=== PATIENT | female | born 1990 | race Caucasian/White ===

== ENCOUNTER 2018-07-02 14:26 | Emergency (ER) | payer BC ==
[2018-07-02 15:22] LABS: ABS Basophils 0.1 10^3/ul (0-0.2); ABS Eosinophils 0.4 10^3/ul (0-0.6); ABS Lymphocytes 2.4 10^3/ul (1.0-4.8); ABS Monocytes 0.8 10^3/ul (0-0.8); ABS Neutrophils 7.2 10^3/ul (1.5-7.7); ABS Nucleated RBC 0 10^3/ul; Eosinophil % 3.5 %; Hematocrit 40 % (35-47); Hemoglobin 13.1 g/dl (12.0-16.0); Lymphocyte % 22.3 %; Mean Corpuscular HGB Conc 33 g/dl (31-36); Mean Corpuscular Hemoglobin 29 pg (27-31); Mean Corpuscular Volume 89 fL (80-97); Mean Platelet Volume 8.2 fL (7.4-10.4); Nucleated Red Blood Cells % 0; Platelet Count 382 10^3/ul (150-450); Red Blood Count 4.46 10^6/ul (4.00-5.40); Red Cell Distribution Width 14 % (10.5-15); White Blood Count 10.8 10^3/ul (3.5-10.8)
[2018-07-02 15:41] LABS: HCG Pregnancy 10.61 mIU/mL
[2018-07-02 16:06] LABS: ALT 15 U/L (7-52); AST 16 U/L (13-39); Albumin 4.6 g/dL (3.2-5.2); Albumin/Globulin Ratio 1.6 (1-3); Alkaline Phosphatase 71 U/L (34-104); Anion Gap 6 mmol/L (2-11); Blood Urea Nitrogen 7 mg/dL (6-24); C Reactive Protein < 1.00 mg/L (<8.01); CO2 Carbon Dioxide 22 mmol/L (22-32); Calcium 9.5 mg/dL (8.6-10.3); Chloride 109 mmol/L (101-111); EGFR African American 120.6 (>60); EGFR Non-African American 99.6 (>60); Globulin 2.8 g/dL (2-4); Glucose 110 mg/dL (70-100); Potassium 4.3 mmol/L (3.5-5.0); Sodium 137 mmol/L (135-145); Total Protein 7.4 g/dL (6.4-8.9)
--- NOTE | 2018-07-02 16:48 | ED ---
Abdominal Pain/Female - HPI Summary HPI Summary: Patient complains of progressive right lower quadrant pain 3 weeks, now recently radiating to right lower back. Pain described as stabbing, intermittent but mostly present, worse with nothing, improved with nothing. Denies prior history of same pain. Denies fever, cough, sore throat, CP, SOB, N /V/D, change in urine, change in BM, vaginal symptoms. Medical history is none. Abdominal surgical history is none. - History of Current Complaint Chief Complaint: EDAbdPain Stated Complaint: RIGHT SIDE ABD PAIN Time Seen by Provider: 07/02/18 16:04 Hx Obtained From: Patient Onset/Duration: Gradual Onset, Lasting Weeks Timing: Intermittent Episode Lasting Severity Initially: Severe Severity Currently: Severe Pain Intensity: 9 Pain Scale Used: 0-10 Numeric Location: Discrete At: RLQ Radiates: Yes Radiates to: Flank Character: Sharp Aggravating Factor(s): Nothing Alleviating Factor(s): Nothing Associated Signs and Symptoms: Positive: Back Pain Allergies/Adverse Reactions: Allergies Allergy/AdvReac Type Severity Reaction Status Date / Time clindamycin Allergy Hives Verified 07/02/18 14:34 codeine Allergy Vomiting Verified 07/02/18 14:34 diphenhydramine Allergy Swelling Verified 07/02/18 14:34 [From Benadryl] Of Face,Lips,& Throat Penicillins Allergy Hives Verified 07/02/18 14:34 Sulfa (Sulfonamide Allergy Hives Verified 07/02/18 14:34 Antibiotics) Home Medications: Home Medications Metoprolol Tartrate TAB* [Lopressor TAB*] 50 mg PO DAILY 07/02/18 [History Confirmed 07/02/18] PMH/Surg Hx/FS Hx/Imm Hx Endocrine/Hematology History: Denies: Hx Anticoagulant Therapy Cardiovascular History: Denies: Hx Cardiac Arrest History: Denies: Hx Dialysis Sensory History: Denies: Hx Eye Prosthesis EENT History: Denies: Hx Deafness Neurological History: Denies: Hx Dementia Infectious Disease History: No Infectious Disease History: Denies: Traveled Outside the [place] in Last 30 Days - Social History Lives: With Family Alcohol Use: None Substance Use Type: Reports: None Smoking Status (MU): Light Every Day Tobacco Smoker Review of Systems Constitutional: Negative Eyes: Negative ENT: Negative Cardiovascular: Negative Respiratory: Negative Positive: Abdominal Pain Genitourinary: Negative Musculoskeletal: Negative Skin: Negative Neurological: Negative Psychological: Normal All Other Systems Reviewed And Are Negative: Yes Physical Exam - Summary Physical Exam Summary: Mild tenderness suprapubically and right lower quadrant. Abdominal exam otherwise unremarkable. Triage Information Reviewed: Yes Vital Signs On Initial Exam: Initial Vitals Temp Pulse Resp BP Pulse Ox 97.4 F 111 16 157/96 97 07/02/18 14:30 07/02/18 14:30 07/02/18 14:30 07/02/18 14:30 07/02/18 14:30 Vital Signs Reviewed: Yes Appearance: Positive: Well-Appearing Skin: Positive: Warm Head/Face: Positive: Normal Head/Face Inspection Eyes: Positive: Normal Neck: Positive: Supple Respiratory/Lung Sounds: Positive: Clear to Auscultation Cardiovascular: Positive: Normal Abdomen Description: Positive: Other: Musculoskeletal: Positive: Normal Neurological: Positive: Normal Psychiatric: Positive: Normal AVPU Assessment: Alert - Guillermo Coma Scale Best Eye Response: 4 - Spontaneous Best Motor Response: 6 - Obeys Commands Best Verbal Response: 5 - Oriented - With Coma Scale Total: 15 Diagnostics - Vital Signs Vital Signs Temp Pulse Resp BP Pulse Ox 07/02/18 16:38 100.2 F 07/02/18 14:30 97.4 F 111 16 157/96 97 - Laboratory Lab Results: Lab Results 07/02/18 07/02/18 Range/Units 14:16 14:16 WBC 10.8 (3.5-10.8) 10^3/ul RBC 4.46 (4.00-5.40) 10^6/ul Hgb 13.1 (12.0-16.0) g/dl Hct 40 (35-47) % MCV 89 (80-97) fL MCH 29 (27-31) pg MCHC 33 (31-36) g/dl RDW 14 (10.5-15) % Plt Count 382 (150-450) 10^3/ul MPV 8.2 (7.4-10.4) fL Neut % (Auto) 66.3 % Lymph % (Auto) 22.3 % Lander % (Auto) 7.3 % Eos % (Auto) 3.5 % Baso % (Auto) 0.6 % Absolute Neuts (auto) 7.2 (1.5-7.7) 10^3/ul Absolute Lymphs (auto) 2.4 (1.0-4.8) 10^3/ul Absolute Monos (auto) 0.8 (0-0.8) 10^3/ul Absolute Eos (auto) 0.4 (0-0.6) 10^3/ul Absolute Basos (auto) 0.1 (0-0.2) 10^3/ul Absolute Nucleated RBC 0 10^3/ul Nucleated RBC % 0 Sodium 137 (135-145) mmol/L Potassium 4.3 (3.5-5.0) mmol/L Chloride 109 (101-111) mmol/L Carbon Dioxide 22 (22-32) mmol/L Anion Gap 6 (2-11) mmol/L BUN 7 (6-24) mg/dL Creatinine 0.70 (0.51-0.95) mg/dL Est GFR ( Amer) 120.6 (>60) Est GFR (Non-Af Amer) 99.6 (>60) BUN/Creatinine Ratio 10.0 (8-20) Glucose 110 H (70-100) mg/dL Calcium 9.5 (8.6-10.3) mg/dL Total Bilirubin 0.30 (0.2-1.0) mg/dL AST 16 (13-39) U/L ALT 15 (7-52) U/L Alkaline Phosphatase 71 (34-104) U/L C-Reactive Protein < 1.00 (<8.01) mg/L Total Protein 7.4 (6.4-8.9) g/dL Albumin 4.6 (3.2-5.2) g/dL Globulin 2.8 (2-4) g/dL Albumin/Globulin Ratio 1.6 (1-3) Lipase 16 (11.0-82.0) U/L Beta HCG, Quant 10.61 mIU/mL Result Diagrams: 07/02/18 14:16 07/02/18 14:16 Lab Statement: Any lab studies that have been ordered have been reviewed, and results considered in the medical decision making process. Abdominal Pain Fem Course/Dx - Course Course Of Treatment: Patient complains of progressive right lower quadrant pain 3 weeks, now recently radiating to right lower back. Pain described as stabbing, intermittent but mostly present, worse with nothing, improved with nothing. Denies prior history of same pain. Denies fever, cough, sore throat, CP, SOB, N/V/D, change in urine, change in BM, vaginal symptoms. Medical history is none. Abdominal surgical history is none. Physical exam:Mild tenderness suprapubically and right lower quadrant. Abdominal exam otherwise unremarkable. Vital signs within normal limits. HCG level 10. ( Gave 4 months ago. Sexually active.) Labs otherwise unremarkable. Patient refused to wait for MRI wanted to go home. Advised of risks of potential appendicitis including life-threatening. Patient signed out AMA, stating she will return if symptoms persist or worsen. - Diagnoses Provider Diagnoses: Right lower quadrant pain Discharge - Sign-Out/Discharge Documenting (check all that apply): Patient Departure - Discharge Plan Condition: Stable Disposition: HOME Patient Education Materials: Acute Abdominal Pain (ED) Referrals: No Primary Care Phys,NOPCP [Primary Care Provider] - Additional Instructions: Return to the ED for any concerning symptoms - Billing Disposition and Condition Condition: STABLE Disposition: Home
[2018-07-02 16:55] LABS: Urine Appearance Clear; Urine Bilirubin Negative (Negative); Urine Blood Negative (Negative); Urine Color Colorless; Urine Glucose Negative (Negative); Urine Ketones Negative (Negative); Urine Nitrite Negative (Negative); Urine Protein Negative (Negative); Urine Specific Gravity 1.002 (1.010-1.030); Urine Urobilinogen Negative (Negative)
[2018-07-02 18:36] VITALS: BP 0/0
== END 2018-07-02 18:35 | disposition home or self-care (01) ==
LOC: ED 14:26
DX: R10.31 Right lower quadrant pain (principal); Z88.5 Allergy status to narcotic agent
CPT/HCPCS: 36415; 76705; 76830; 80053; 81003; 83690; 84702; 85025; 86140; 99282